=== PATIENT | male | born 1940 | race Caucasian/White ===

== ENCOUNTER 2016-09-28 17:25 | Emergency (ER) | payer MEDICARE, BC ==
[~2016-09-28] VITALS: Ht 180.3 cm; Wt 100.0 kg
[2016-09-28 18:18] LABS: HEMATOCRIT 48.4 % (42.0-52.0); HEMOGLOBIN 16.3 g/dl (13.5-18.0); MEAN CELL VOLUME 90 fl (80.0-100.0); MEAN CORPUSCULAR HEMOGLOBIN 30 pg (27.0-31.0); MEAN CORPUSCULAR HGB CONC 34 g/dl (33.0-37.0); MEAN PLATELET VOLUME 10.9 fl (7.4-10.4); PLATELET COUNT 100 K/mm3 (130-400); RED BLOOD COUNT 5.37 M/mm3 (4.20-5.60); REDCELL DISTRIBUTION WIDTH-CV 13.5 % (11.5-14.5)
[2016-09-28] MEDS ORDERED: COUMADIN 5MG5 MG/TAB PO (18:27)
[2016-09-28] MEDS ORDERED: LIPITOR 10MG10 MG PO (18:27)
[2016-09-28 18:29] LABS: ADD PATHOLOGY DIFF REVIEW NO
[2016-09-28 18:32] LABS: INR 1.3 (0.8-3.0); PROTHROMBIN TIME 14.1 SECONDS (9.7-12.8)
[2016-09-28 18:41] LABS: ADJUSTED CALCIUM 8.7 mg/dL (8.4-10.2); ALBUMIN 3.7 gm/dL (3.5-5.0); CALCIUM 8.5 mg/dL (8.4-10.2); CREATININE, serum 1.53 mg/dL (0.66-1.25); POTASSIUM 3.5 mmol/L (3.4-5.0); TOTAL PROTEIN 6.8 gm/dL (6.4-8.2)
[2016-09-28 18:49] LABS: BAND 54 % (0-10); METAMYELOCYTE 1 % (0-0); NEUTROPHILS 31 % (42.0-75.2); PLATELET ESTIMATE NORMAL (NORMAL); TOTAL CELLS COUNTED 100
[2016-09-28] MEDS ORDERED: ZOFRAN8 MG PO (19:15)
[2016-09-28 19:44] VITALS: BP 115/77; PULSE 65; TEMP 99.2
== END 2016-09-28 19:46 | disposition home or self-care (01) ==
LOC: COL.ER 17:25
PROVIDERS: Emergency Medicine
DX: R10.32 Left lower quadrant pain (principal); R10.31 Right lower quadrant pain; E86.0 Dehydration; R11.2 Nausea with vomiting, unspecified; Z79.01 Long term (current) use of anticoagulants
CPT/HCPCS: J1170; J1650; J2405; J7030